=== PATIENT | female | born 1950 | race Caucasian/White ===

== ENCOUNTER 2023-12-15 10:27 | Emergency (ER) | payer MEDICARE, OTHER, SELFPAY ==
[2023-12-15] VITALS (7 sets, daily range): BP systolic 157–187; BP diastolic 87–107
--- NOTE | 2023-12-15 11:39 | ED.GENMED ---
History of Present Illness
General
Chief Complaint: Abdominal Symptoms
Source: patient
Exam Limitations: none
Time Seen by Provider: 12/15/23 11:16
Nursing documentation reviewed up to this point in time: agreed with
History of Present Illness
History of Present Illness:
Patient is a 73-year-old female who presents to the ER for evaluation. She reports on Monday she was eating candy and they tasted bad. She fell asleep after eating them and woke up with room spinning sensation felt dizzy had the chills sweats
and was nauseous. Since then she has had intermittent room spinning sensation and has had intermittent vomiting. She only vomited her total of 2 times. She has had episodes dizziness and feels nauseous. She does have IBS/D and always has
diarrhea this is not new. She reports she feels like she may have strained her right rib while vomiting.
She reports the intermittent room spinning sensation dizziness comes and goes and she denies it presently.
She denies any associated headache. Denies any upper or lower extremity numbness tingling weakness. Denies any difficulty speaking. Denies any blurry vision.
denies any abdominal pain. Denies any urinary frequency urgency or dysuria.
She does feel nauseous now.
Review of Systems
Review of Systems
Allergies reviewed?: Yes
All Other Systems: ROS reviewed and negative except as documented in HPI and ROS
Constitutional: Reports no symptoms; Denies fever, fatigue or chills
Respiratory: Reports no symptoms
Cardiac: Reports no symptoms
ABD/GI: Reports nausea, vomiting and diarrhea
: Reports no symptoms
Musculoskeletal: Reports no symptoms
Skin: Reports no symptoms
Neurological: Reports dizzy and other (Intermittent room spinning); Denies headache
Psychiatric: Reports no symptoms
Phy Exam
General Physical Exam
General Presentation: no apparent distress
General age: appears stated age
General Skin: warm and dry
General Habitus: normal
General Mental: alert
General Hydration: appears well hydrated
Cardiovascular Exam
Cardiovascular Exam: regular rate/rhythm, no murmur and normal peripheral pulses
Pulmonary Exam
Pulmonary Exam: lungs clear and no respiratory distress
Gastrointestinal Exam
Gastrointestinal Exam: normal bowel sounds, non tender and soft
Neurological Exam
Neurological Exam: alert and oriented x3
Musculoskeletal Exam
Musculoskeletal Exam: full ROM
Skin Exam
Skin Exam: normal color and warm/dry
Psychiatric Exam
Psychiatric Exam: normal mood/affect
Course
Orders/Labs/Results
Orders:
Orders
12/15/23 11:37
IV Insert/Care/Rem.- Treatment PRN
0.9% Sodium Chloride 1000 ml [Nss] 1,000 ml IV BOLUS
Ondansetron Injectable [Zofran] 4 mg IV NOW STA
12/15/23 11:40
Ribs, Right 3 View W/PA Chest [CR Ribs-right 3 Vw W/pa Chest*] Urgent
Comment:
Reason For Exam: pain to right rib after vomiting
12/15/23 12:01
Complete Blood Count/With Diff Urgent
Comprehensive Metabolic Panel Urgent
Lipase Urgent
Urinalysis Reflex To Culture Urgent
Date Specimen was Collected: 12/15/23
Time Specimen was Collected: 11:58
12/15/23 13:47
CT Head W/o Iv Contrast Urgent
Comment:
Reason For Exam: vertigo intermittent since
12/15/23 14:00
Electrocardiogram (*1) Urgent
Reason for Study: Palpitations
12/15/23 14:01
EKG- Treatment ONCE
Abnormal Lab Results
12/15/23
12:01
MCH 31.4 H pg
(27.0-31.0)
MPV 11.4 H fL
(7.4-10.4)
Sodium 130 L mmol/L
(135-145)
Glucose 116 H mg/dl
(70-99)
Calcium 10.3 H mg/dl
(8.4-10.2)
12/15/23 12:01
12/15/23 12:01
Vital Signs
Initial and Last Documented VS:
Initial Vital Signs
Temp Pulse Resp BP Pulse Ox
98.3 F 92 18 187/107 98
12/15/23 10:47 12/15/23 10:47 12/15/23 10:47 12/15/23 10:47 12/15/23 10:47
Last Documented Vital Signs
Temp Pulse Resp BP Pulse Ox
98.2 F 78 18 160/88 96
12/15/23 13:22 12/15/23 14:01 12/15/23 14:01 12/15/23 15:00 12/15/23 15:15
Computer Systems Software Engineer consulted with Physician
Computer Systems Software Engineer consulted with physician?: Yes
Name of Physician Consulted: Nick
MDM/Problems Addressed
MDM/Problems Addressed:
Patient is a 73-year-old female who presented to the ER for evaluation of vomiting diarrhea for the past several days associated with vertigo symptoms. She reports vertigo symptoms come and go usually when she has nausea vomiting. She denies any
headache no neurological deficit complaints. She thinks everything started after eating bad food. She presents awake alert no acute distress she has a normal neurologic exam no nystagmus normal finger-nose ambulatory with a steady gait she is
afebrile with a normal white count stable hemoglobin. Sodium is mildly low at 130 urinalysis negative. Patient complains of some right lateral rib pain from vomiting on exam abdomen soft nontender patient received fluids here nausea medicine
tolerating p.o.'s looks very well rib x-ray was done and negative. Case reviewed with ED physician with intermittent vertigo CAT scan was done and negative. Patient has had no vertigo here in the ER.
Pt feeling better. Ambulated around the ER with a steady gait. Patient has not able to produce a bowel movement for stool specimen. She Feels well enough to go home. With no episodes of vertigo here and vertigo being intermittent since been
vomiting likely viral syndrome however not concerning for stroke. Case reviewed with ED physician patient feels well after home.
Chronic conditions affecting care:
IBS
*Critical Care Note
Total Time (30-74mins, 75-104mins- exclusive of procedures): Not Applicable
ED Attending Note
-
Portions of this chart may have been created with voice recognition software.� Occasional wrong word or��sound alike� substitutions may have occurred due to the inherent limitations of voice recognition software.
Discharge Plan
Departure
Patient Disposition: Home (Routine Discharge)
Date of Disposition: 12/15/23
Time of Disposition: 15:19
Patient with high blood pressure during this ER visit?: Yes
Condition: Fair
Covid-19: Not Applicable
Discharge Problem:
Nausea, vomiting and diarrhea
Instructions: [place] Diet, Nausea and Vomiting, Adult (DC), Acute Diarrhea, BLOOD PRESSURE
Prescriptions:
New
ondansetron 4 mg tablet,disintegrating
4 mg PO Q8H PRN (Reason: nausea and vomiting) Qty: 10 0RF
No Action
lorazepam 0.5 MG tablet
0.5 mg PO Q4HPRN PRN (Reason: anxiety)
diltiazem HCl 120 MG capsule,extended release 24hr
120 mg PO HS
zolpidem 10 MG tablet
10 mg PO HS
omeprazole magnesium [Prilosec OTC] 20 MG tablet,delayed release (DR/EC)
20 mg PO DAILY
artificial tears(hypromellose) [Systane Gel] 10 GM gel
1 drp OP BIDPRN PRN (Reason: dry eye)
nebivolol 2.5 MG tablet
2.5 mg PO DAILY
Referrals:
Ramses Valencia Jr., DO [Family Provider] -
Activity Restrictions/Additional Instructions:
As discussed a prescription for Zofran, nausea medicine sent to pharmacy take as directed. [place] diet. Be sure to stay well-hydrated. Since you are not able to give a stool specimen you were sent home with a prescription please bring to your
local lab or here at [facility]'s lab. Follow-up with your family doctor the next several days for reevaluation as well as lab recheck. Your sodium was low at 130 and this will need to be rechecked by your family doctor. Return if any
worsening of symptoms if fevers pain worsening nausea vomiting or any further concerns.
Interventions
Interventions:
*Risk Screen - Suicide Last Done: 12/15/23 14:00
*Neglect/Abuse Screening Last Done: 12/15/23 14:00
ED- Fall Risk Assessment Last Done: 12/15/23 12:15
*ED COVID-19 Vaccine History Last Done: 12/15/23 10:47
*Nursing Disposition Last Done: 12/15/23 15:41
PO-Oagrjf-Joclilzeix Assessment Last Done: 12/15/23 12:15
Discharge Date and Time
Discharge Date/Time: 12/15/23 15:41
Print Language: [id number]
[2023-12-15] MEDS: ZOFRAN 4 MG IV (11:50)
[2023-12-15] MEDS: NSS 1000 IV (11:50)
[2023-12-15 12:10] LABS: Urine Albumin Negative (Neg - Trace); Urine Bilirubin Negative (Negative); Urine Character Clear (Clear); Urine Color Straw; Urine Glucose Negative (Negative); Urine Ketone Negative (Negative); Urine Leukocyte Negative (Negative); Urine Nitrite Negative (Negative); Urine Occult Blood Negative (Negative); Urine Urobilinogen Negative (Neg - 1+)
[2023-12-15 12:16] LABS: % Basophils 0.5 % (0-2); % Eosinophils 0.1 % (0-6); % Immature Granulocytes 0.2 % (0-0.5); % Lymphocytes 20.5 % (20.5-51.1); % Monocytes 6.9 % (1.7-9.3); % Neutrophils 71.8 % (42.2-75.2); Absolute Lymphocytes 1.8 10^3/uL (1.2-3.4); Absolute Monocytes 0.6 10^3/uL (0.1-0.6); Absolute Neutrophils 6.2 10^3/uL (1.4-6.5); Hematocrit 38.1 % (37.0-47.0); Hemoglobin 13.6 g/dL (12.0-16.0); Mean Corp Hgb Conc. 35.7 g/dL (33.0-37.0); Mean Corpuscular Hgb 31.4 pg (27.0-31.0); Mean Platelet Volume 11.4 fL (7.4-10.4); Nucleated Red Blood Cells % 0 %; Platelet Count 287 10^3/uL (130-400); Red Blood Cell Count 4.33 10^6/uL (4.20-5.40); White Blood Cell Count 8.7 10^3/uL (4.8-10.8)
[2023-12-15 12:23] LABS: ALT (SGPT) 15 U/L (0-35); AST (SGOT) 24 U/L (14-36); Albumin 4.6 g/dl (3.5-5.0); Alkaline Phosphatase 91 U/L (38-126); Blood Urea Nitrogen 9 mg/dl (7-17); Calcium 10.3 mg/dl (8.4-10.2); Carbon Dioxide 26 mmol/L (22-30); Chloride 98 mmol/L (98-107); Glucose 116 mg/dl (70-99); Lipase 59 U/L (23-300); Potassium 3.9 mmol/L (3.5-5.1); Sodium 130 mmol/L (135-145); Total Bilirubin 0.8 mg/dl (0.2-1.3); Total Protein 6.9 g/dl (6.3-8.2); eGFR > 60.00
== END 2023-12-15 15:41 | disposition home or self-care (01) ==
LOC: EMR 10:27
PROVIDERS: Nurse Practitioner; EMERGENCY PHYSICIAN Emergency Medicine; FAMILY PHYSICIAN Family Medicine
DX: R11.2 Nausea with vomiting, unspecified (principal); R19.7 Diarrhea, unspecified; K58.9 Irritable bowel syndrome, unspecified
CPT/HCPCS: 99284; 96374; 96361; 70450; 71101; 80053; 81003; 83690; 85025; 93005

== ENCOUNTER → 2024-03-29 12:58 | Outpatient (REF) | payer MEDICARE, OTHER, SELFPAY | LOC: HWRCS 12:58 | PROVIDERS: ATTENDING PHYSICIAN Internal Medicine Cardiovascular Disease | DX: I35.1 Nonrheumatic aortic (valve) insufficiency (principal) | CPT/HCPCS: 93306 ==

== ENCOUNTER → 2024-09-25 14:46 | Outpatient (REF) | payer MEDICARE, OTHER, SELFPAY | LOC: HWRCS 14:46 | PROVIDERS: ATTENDING PHYSICIAN Internal Medicine Cardiovascular Disease; FAMILY PHYSICIAN Family Medicine | DX: R09.89 Other specified symptoms and signs involving the circulatory and respiratory systems (principal); R00.0 Tachycardia, unspecified; I35.1 Nonrheumatic aortic (valve) insufficiency | CPT/HCPCS: 93306 ==